=== PATIENT | male | born 1965 ===

== ENCOUNTER 2017-11-17 06:33 | Emergency (ER) | payer OTHER, BC ==
[2017-11-17 06:33] VITALS: BMI 31.0
[2017-11-17 07:48] LABS: BASO # 0.1 K/uL (0.0-0.2); BASO % 0.7 % (0.0-2.0); EOS # 0.2 K/uL (0.0-0.7); EOS % 1.2 % (0.0-4.0); HEMOGLOBIN 16.7 g/dL (12.0-18.0); LYMPH % 15.8 % (20.0-40.0); MEAN CELL VOLUME 93.7 fL (80.0-94.0); MEAN CORPUSCULAR HEMOGLOBIN 32.2 pg (27.0-31.0); MEAN CORPUSCULAR HGB CONC 34.4 g/dL (33.0-37.0); MEAN PLATELET VOLUME 9.1 fL (7.2-11.7); MONO # 0.7 K/uL (0.0-0.8); MONO % 5.9 % (0.0-10.0); NEUT # 9.7 K/uL (1.8-7.0); NEUT % 76.4 % (50.0-75.0); NRBC % 0.2 % (0.0-2.0); RBC 5.2 Mil/uL (4.40-5.90); RED CELL DISTRIBUTION WIDTH 13.3 % (11.5-14.5); WHITE BLOOD COUNT 12.7 K/uL (4.8-10.8)
--- NOTE | 2017-11-17 08:05 | RAD ---
PROCEDURE: CHEST RADIOGRAPH, 1 VIEW HISTORY: chest pain COMPARISON: None available. FINDINGS: LUNGS: Clear. PLEURA: No pneumothorax or pleural fluid seen. CARDIOVASCULAR: Normal. OSSEOUS STRUCTURES: Mild thoracic spondylosis VISUALIZED UPPER ABDOMEN: Normal. OTHER FINDINGS: None. IMPRESSION: No active disease.
[2017-11-17 08:08] LABS: ALB/GLOB RATIO 1.1 (1.0-2.1); ALBUMIN 4.1 g/dL (3.5-5.0); ALT/SGPT 73 U/L (21-72); AST/SGOT 48 U/L (17-59); BLOOD UREA NITROGEN 17 mg/dL (9-20); CALCIUM 9.2 mg/dl (8.6-10.4); GFR AFRICAN-AMERICAN > 60; GFR NON-AFRICAN AMERICAN > 60
[2017-11-17 08:20] LABS: B-TYPE NATRIURETIC PEPTIDE 16.7 pg/mL (0-900)
[2017-11-17 09:38] VITALS: BP 126/85; PULSE 57; RESP 18; TEMP 97.6; O2SAT 98
--- NOTE | 2017-11-17 10:10 | C.PDOC ---
History Of Present Illness 52 y/o male, w/PMhx of diabetes, presents to the ER complaining of dizziness and nausea which began after the patient woke up in the morning today. Patient states that he felt pressure in his head and he was in a cold sweat. Patient reports that he had nausea which has resolved now. He notes that he vomited x2. He notes that he had nausea which has resolved now. He denies having fever, chills, CP, and SOB. Time Seen by Provider: 11/17/17 07:02 Chief Complaint (Nursing): Dizziness/Lightheaded History Per: Patient History/Exam Limitations: no limitations Onset/Duration Of Symptoms: Hrs Current Symptoms Are (Timing): Still Present Past Medical History Reviewed: Historical Data, Nursing Documentation, Vital Signs Vital Signs: Last Vital Signs Temp 97.6 F 11/17/17 09:37 Pulse 57 L 11/17/17 09:37 Resp 18 11/17/17 10:18 BP 126/85 11/17/17 09:37 Pulse Ox 98 11/17/17 10:43 - Medical History PMH: CAD, Diabetes, HTN, Hyperlipidemia Denies: Chronic Kidney Disease Surgical History: Coronary Stent (x2) - [facility] Procedures DILATION OF 1 COR ART WITH DRUG-ELUT INTRALUM, PERC APPROACH (07/13/15) MEASURE OF CARDIAC SAMPL & PRESSURE, L HEART, PERC APPROACH (07/13/15) PLAIN RADIOGRAPHY OF LEFT HEART USING OTHER CONTRAST (07/13/15) PLAIN RADIOGRAPHY OF MULT COR ART USING OTH CONTRAST (07/13/15) Family History: States: No Known Family Hx - Social History Hx Alcohol Use: No Hx Substance Use: No - Immunization History Hx Tetanus Toxoid Vaccination: No Hx Influenza Vaccination: No Hx Pneumococcal Vaccination: No Review Of Systems Constitutional: Negative for: Fever, Chills Cardiovascular: Negative for: Chest Pain Respiratory: Negative for: Shortness of Breath Gastrointestinal: Positive for: Vomiting Neurological: Positive for: Dizziness Physical Exam - Physical Exam Appears: Non-toxic, No Acute Distress Skin: Normal Color, Warm, Dry Head: Atraumatic, Normacephalic Eye(s): bilateral: Normal Inspection Nose: Normal Oral Mucosa: Moist Neck: Supple Chest: Symmetrical Cardiovascular: Rhythm Regular Gastrointestinal/Abdominal: Normal Exam, Soft, No Tenderness Neurological/Psych: Oriented x3, Normal Speech ED Course And Treatment - Laboratory Results Result Diagrams: 11/17/17 07:39 11/17/17 07:39 ECG: Interpreted By Me, Viewed By Me ECG Rhythm: Sinus Rhythm ECG Interpretation: Normal Interpretation Of ECG: NSR with no ST elevations/depressions Rate From EC O2 Sat by Pulse Oximetry: 98 (RA) Pulse Ox Interpretation: Normal - Radiology CXR: Interpreted by Me, Viewed By Me CXR Interpretation: Yes: No Acute Disease Medical Decision Making Medical Decision Making: Plan: --Labs --CXR --EKG --Pepcid IV Disposition Counseled Patient/Family Regarding: Diagnosis, Need For Followup - Disposition Referrals: Al Araujo MD [Medical Doctor] - Disposition: HOME/ ROUTINE Disposition Time: 10:07 Condition: STABLE Additional Instructions: Follow up with your doctor, return to the Emergency Department if symptoms return. Instructions: Dizziness, Nonvertigo, (DC) Forms: Gen Discharge Inst Azerbaijani, Work Excuse - POA Present On Arrival: None - Clinical Impression Clinical Impression: Dizziness - Scribe Statement The provider has reviewed the documentation as recorded by the Noe Aguila Provider Attestation: All medical record entries made by the Olvinibglendy were at my direction and personally dictated by me. I have reviewed the chart and agree that the record accurately reflects my personal performance of the history, physical exam, medical decision making, and the department course for this patient. I have also personally directed, reviewed, and agree with the discharge instructions and disposition.
--- NOTE | 2017-11-19 12:36 | CARD ---
APPROVED REPORT EKG Measurement Heart [id number] <Conclusion> Normal sinus rhythm Normal ECG
== END 2017-11-17 10:19 | disposition home or self-care (01) ==
LOC: C.ER 06:33
DX: R42 Dizziness and giddiness (principal); I10 Essential (primary) hypertension; E11.9 Type 2 diabetes mellitus without complications; E78.5 Hyperlipidemia, unspecified; F17.210 Nicotine dependence, cigarettes, uncomplicated

== ENCOUNTER 2018-09-17 13:19 | Observation (INO) | payer BC ==
[2018-09-17 13:19] VITALS: BMI 31.0
[2018-09-17 14:09] LABS: BASO # 0.1 K/uL (0.0-0.2); BASO % 0.8 % (0.0-2.0); EOS # 0.1 K/uL (0.0-0.7); EOS % 1.7 % (0.0-4.0); HEMOGLOBIN 16.6 g/dL (12.0-18.0); LYMPH # 1.2 K/uL (1.0-4.3); LYMPH % 16.7 % (20.0-40.0); MEAN CORPUSCULAR HEMOGLOBIN 31.5 pg (27.0-31.0); MEAN PLATELET VOLUME 8.7 fL (7.2-11.7); MONO # 0.9 K/uL (0.0-0.8); MONO % 12.5 % (0.0-10.0); NEUT % 68.3 % (50.0-75.0); NRBC % 0.1 % (0.0-2.0); RBC 5.25 Mil/uL (4.40-5.90); RED CELL DISTRIBUTION WIDTH 13.4 % (11.5-14.5); WHITE BLOOD COUNT 7.3 K/uL (4.8-10.8)
[2018-09-17 14:10] LABS: MEAN CELL VOLUME 95.6 fL (80.0-94.0)
[2018-09-17 14:20] LABS: ALB/GLOB RATIO 1.3 (1.0-2.1); ALBUMIN 4.5 g/dL (3.5-5.0); ALT/SGPT 53 U/L (21-72); AST/SGOT 33 U/L (17-59); BLOOD UREA NITROGEN 13 mg/dL (9-20); CALCIUM 9.1 mg/dl (8.6-10.4); GFR NON-AFRICAN AMERICAN > 60
--- NOTE | 2018-09-17 14:24 | C.PDOC ---
History Of Present Illness 53 y/o male with a PMHx of HTN, DM, hypercholesterolemia, and s/p coronary stent x3 presents to the ED complaining of chest pain and SOB since this morning. 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 He did not have any pain while lifting, but felt onset of symptoms after walking back to his seat. Otherwise he denies any fever, chills, nausea, vomiting, diaphoresis, abdominal pain, dizziness, or headache. Patient did not take any medication prior to arrival. Time Seen by Provider: 09/17/18 13:22 Chief Complaint (Nursing): Chest Pain History Per: Patient History/Exam Limitations: no limitations Onset/Duration Of Symptoms: Hrs Current Symptoms Are (Timing): Still Present Exacerbating Factors: Exertion Past Medical History Reviewed: Historical Data, Nursing Documentation, Vital Signs Vital Signs: Last Vital Signs Temp 98.8 F 09/17/18 13:24 Pulse 78 09/17/18 13:24 Resp 20 09/17/18 13:24 BP 132/69 09/17/18 13:24 Pulse Ox 97 09/17/18 13:24 - Medical History PMH: CAD, Diabetes, HTN, Hypercholesterolemia, Hyperlipidemia Denies: Chronic Kidney Disease Surgical History: Coronary Stent (x2) - [facility] Procedures DILATION OF 1 COR ART WITH DRUG-ELUT INTRALUM, PERC APPROACH (07/13/15) MEASURE OF CARDIAC SAMPL & PRESSURE, L HEART, PERC APPROACH (07/13/15) PLAIN RADIOGRAPHY OF LEFT HEART USING OTHER CONTRAST (07/13/15) PLAIN RADIOGRAPHY OF MULT COR ART USING OTH CONTRAST (07/13/15) Family History: States: Unknown Family Hx - Social History Hx Alcohol Use: No Hx Substance Use: No - Immunization History Hx Tetanus Toxoid Vaccination: No Hx Influenza Vaccination: No Hx Pneumococcal Vaccination: No Review Of Systems Except As Marked, All Systems Reviewed And Found Negative. Constitutional: Negative for: Fever, Chills, Sweats Eyes: Negative for: Vision Change Cardiovascular: Positive for: Chest Pain. Negative for: Palpitations Respiratory: Positive for: Shortness of Breath. Negative for: Pleuritic Pain Gastrointestinal: Negative for: Nausea, Vomiting, Diarrhea Skin: Negative for: Rash Neurological: Negative for: Weakness, Headache, Dizziness Physical Exam - Physical Exam Additional Physical Exam Comments: Constitutional: No acute distress. Head: Normocephalic. Atraumatic. Eyes: PERRL. ENT: Moist mucous membranes. Neck: Supple. Cardiovascular: Regular rate. Radial pulse 2+ bilaterally. Chest: No tenderness. Respiratory: Clear to auscultation bilaterally. GI: Soft. Nontender. Nondistended. Back: No CVA tenderness. Musculoskeletal: No tenderness or swelling of extremities. Skin: No rash. Neurologic: Alert, no focal deficit. ED Course And Treatment - Laboratory Results Result Diagrams: 09/17/18 14:04 09/17/18 14:04 O2 Sat by Pulse Oximetry: 97 (RA) Pulse Ox Interpretation: Normal Medical Decision Making Medical Decision Making: Plan: - Labs - EKG - CXR - 325 mg PO Aspirin - Reassess EKG: NSR @ 75 bpm, No ST/T wave changes CXR no acute disease. Disposition - Disposition Disposition: HOSPITALIZED Disposition Time: 14:45 Condition: FAIR Forms: [facility] (Bahamian) - POA Core Measure Indicators: Chest Pain - Clinical Impression Clinical Impression: Chest pain - Scribe Statement The provider has reviewed the documentation as recorded by the Noe Mart Provider Attestation: All medical record entries made by the Noe were at my direction and personally dictated by me. I have reviewed the chart and agree that the record accurately reflects my personal performance of the history, physical exam, medical decision making, and the department course for this patient. I have also personally directed, reviewed, and agree with the discharge instructions and disposition.
[2018-09-17 14:32] LABS: CK-MB 1.17 ng/mL (0.0-3.38)
--- NOTE | 2018-09-17 14:33 | RAD ---
Date of service: 09/17/2018 HISTORY: Chest pain COMPARISON: 11/17/2017 FINDINGS: LUNGS: The lungs are well inflated and clear. PLEURA: No pleural effusions or pneumothorax. CARDIOVASCULAR: The heart is normal in size. No aortic atherosclerotic calcifications present. OSSEOUS STRUCTURES: Within normal limits for the patient's age. VISUALIZED UPPER ABDOMEN: Normal. OTHER FINDINGS: None. IMPRESSION: No active pulmonary disease.
--- NOTE | 2018-09-17 18:42 | CP.PCM.HP ---
Past Patient History - Infectious Disease Hx of Infectious Diseases: None - Past Social History Smoking Status: Heavy Smoker > 10 Cigarettes Daily - CARDIAC Hx Hypercholesterolemia: Yes Hx Hypertension: Yes - PULMONARY Hx Respiratory Disorders: No - NEUROLOGICAL Hx Neurological Disorder: No - HEENT Hx HEENT Problems: No - RENAL Hx Chronic Kidney Disease: No - ENDOCRINE/METABOLIC Hx Endocrine Disorders: No - HEMATOLOGICAL/ONCOLOGICAL Hx Blood Disorders: No - INTEGUMENTARY Hx Dermatological Problems: No - MUSCULOSKELETAL/RHEUMATOLOGICAL Hx Musculoskeletal Disorders: No Hx Falls: No - GASTROINTESTINAL Hx Gastrointestinal Disorders: No - GENITOURINARY/GYNECOLOGICAL Hx Genitourinary Disorders: No - PSYCHIATRIC Hx Substance Use: No - SURGICAL HISTORY Hx Coronary Stent: Yes (x2) - ANESTHESIA Hx Anesthesia: Yes Hx Anesthesia Reactions: No Hx Malignant Hyperthermia: No Meds Allergies/Adverse Reactions: Allergies Allergy/AdvReac Type Severity Reaction Status Date / Time No Known Allergies Allergy Verified 09/17/18 13:26 Physical Exam - Constitutional Appears: Well - Head Exam Head Exam: ATRAUMATIC, NORMAL INSPECTION, NORMOCEPHALIC - Eye Exam Eye Exam: EOMI, Normal appearance, PERRL Pupil Exam: NORMAL ACCOMODATION, PERRL - ENT Exam ENT Exam: Mucous Membranes Moist, Normal Exam - Neck Exam Neck exam: Positive for: Normal Inspection - Respiratory Exam Respiratory Exam: Decreased Breath Sounds - Cardiovascular Exam Cardiovascular Exam: REGULAR RHYTHM, +S1, +S2 - GI/Abdominal Exam GI & Abdominal Exam: Diminished Bowel Sounds, Soft - Rectal Exam Rectal Exam: Deferred Results - Vital Signs Recent Vital Signs: Last Vital Signs Temp 98.8 F 09/17/18 17:50 Pulse 70 09/17/18 17:50 Resp 18 09/17/18 17:50 BP 129/78 09/17/18 17:50 Pulse Ox 97 09/17/18 17:50 - Labs Result Diagrams: 09/17/18 14:04 09/17/18 14:04 Labs: Laboratory Results - last 24 hr 09/17/18 09/17/18 14:04 14:04 WBC 7.3 RBC 5.25 Hgb 16.6 Hct 50.2 MCV 95.6 H D MCH 31.5 H MCHC 33.0 RDW 13.4 Plt Count 248 MPV 8.7 Neut % (Auto) 68.3 Lymph % (Auto) 16.7 L Bradley % (Auto) 12.5 H Eos % (Auto) 1.7 Baso % (Auto) 0.8 Neut # (Auto) 5.0 Lymph # (Auto) 1.2 Bradley # (Auto) 0.9 H Eos # (Auto) 0.1 Baso # (Auto) 0.1 Sodium 137 Potassium 4.6 Chloride 102 Carbon Dioxide 29 Anion Gap 11 BUN 13 Creatinine 0.7 L Est GFR ( Amer) > 60 Est GFR (Non-Af Amer) > 60 Random Glucose 169 H D Calcium 9.1 Total Bilirubin 0.4 AST 33 ALT 53 Alkaline Phosphatase 76 Total Creatine Kinase 84 CK-MB (Mass) 1.17 Troponin I 0.0940 Total Protein 8.0 Albumin 4.5 Globulin 3.5 Albumin/Globulin Ratio 1.3
[2018-09-17 20:41] LABS: CK-MB 0.93 ng/mL (0.0-3.38); TROPONIN I 0.16 ng/mL (0.00-0.120)
[2018-09-17 21:03] VITALS: RESP 20
[2018-09-17] MEDS: Enoxaparin 100 mg Syringe SC SCH (21:44)
[2018-09-17] MEDS: (Novolog) Insulin Aspart, Recombinant 100 u/ml 10 ml vial SC SCH (21:45)
[2018-09-18 04:55] LABS: CK-MB 0.54 ng/mL (0.0-3.38); TROPONIN I 0.122 ng/mL (0.00-0.120)
[2018-09-18] MEDS: (Novolog) Insulin Aspart, Recombinant 100 u/ml 10 ml vial SC SCH ×4 (07:57→21:55)
[2018-09-18] MEDS: Enoxaparin 100 mg Syringe SC SCH ×2 (11:04→21:51)
--- NOTE | 2018-09-18 18:29 | CP.PCM.PN ---
Subjective - Date & Time of Evaluation Date of Evaluation: 09/18/18 Time of Evaluation: 10:45 - Subjective Subjective: clinically same Objective - Vital Signs/Intake and Output Vital Signs (last 24 hours): Temp Pulse Resp BP Pulse Ox 98.8 F 58 L 20 122/72 97 09/18/18 15:00 09/18/18 15:00 09/18/18 15:00 09/18/18 15:00 09/18/18 15:00 - Medications Medications: Current Medications Aspirin (Aspirin) 325 mg PO DAILY [facility] Last Admin: 09/18/18 10:45 Dose: 325 mg Clopidogrel Bisulfate (Plavix) 75 mg PO DAILY [facility] Last Admin: 09/18/18 10:44 Dose: 75 mg Enoxaparin Sodium (Lovenox) 90 mg SC Q12 [facility] Last Admin: 09/18/18 11:04 Dose: 90 mg Insulin Aspart (Novolog) 0 unit SC ACHS [facility]; Protocol Last Admin: 09/18/18 07:57 Dose: 1 unit Rosuvastatin Calcium (Crestor) 10 mg PO HS [facility] Last Admin: 09/17/18 21:44 Dose: 10 mg - Labs Labs: 09/17/18 14:04 09/17/18 14:04 - Constitutional Appears: Well - Head Exam Head Exam: ATRAUMATIC, NORMAL INSPECTION, NORMOCEPHALIC - Eye Exam Eye Exam: EOMI, Normal appearance, PERRL Pupil Exam: NORMAL ACCOMODATION, PERRL - ENT Exam ENT Exam: Mucous Membranes Moist, Normal Exam - Neck Exam Neck Exam: Full ROM, Normal Inspection. absent: Lymphadenopathy - Respiratory Exam Respiratory Exam: Decreased Breath Sounds - Cardiovascular Exam Cardiovascular Exam: REGULAR RHYTHM, +S1, +S2 - GI/Abdominal Exam GI & Abdominal Exam: Soft, Diminished Bowel Sounds - Rectal Exam Rectal Exam: Deferred
[2018-09-18] MEDS ORDERED: Fluticasone Nasal 50 mcg/Spray NAS ONE (23:14)
[2018-09-19] MEDS: (Novolog) Insulin Aspart, Recombinant 100 u/ml 10 ml vial SC SCH ×3 (08:07→17:34)
[2018-09-19] MEDS: Enoxaparin 100 mg Syringe SC SCH ×2 (10:19→22:20)
--- NOTE | 2018-09-19 11:02 | CP.PCM.CON ---
History of Present Illness - History of Present Illness History of Present Illness: Malcom is a pleasant 53-year-old male with past medical history significant for hypertension dyslipidemia coronary artery disease status post stenting x3 who has been seen by multiple furniture crater in the past was referred to me for eval uation of symptoms of unstable angina with mildly positive troponins. He was started on subcu Lovenox therapy symptoms resolved. 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 Review of Systems - Review of Systems Systems not reviewed;Unavailable: Acuity of Condition - Constitutional Constitutional: As Per HPI - EENT Eyes: As Per HPI Ears: As Per HPI Nose/Mouth/Throat: As Per HPI - Cardiovascular Cardiovascular: As Per HPI - Respiratory Respiratory: As Per HPI - Gastrointestinal Gastrointestinal: As Per HPI - Genitourinary Genitourinary: As Per HPI - Reproductive: Male Reproductive:Male: As Per HPI - Musculoskeletal Musculoskeletal: As Per HPI - Integumentary Integumentary: As Per HPI - Neurological Neurological: As Per HPI - Psychiatric Psychiatric: As Per HPI - Endocrine Endocrine: As Per HPI - Hematologic/Lymphatic Hematologic: As Per HPI Past Patient History - Infectious Disease Hx of Infectious Diseases: None - Past Social History Smoking Status: Heavy Smoker > 10 Cigarettes Daily - CARDIAC Hx Hypercholesterolemia: Yes Hx Hypertension: Yes - PULMONARY Hx Respiratory Disorders: No - NEUROLOGICAL Hx Neurological Disorder: No - HEENT Hx HEENT Problems: No - RENAL Hx Chronic Kidney Disease: No - ENDOCRINE/METABOLIC Hx Endocrine Disorders: No - HEMATOLOGICAL/ONCOLOGICAL Hx Blood Disorders: No - INTEGUMENTARY Hx Dermatological Problems: No - MUSCULOSKELETAL/RHEUMATOLOGICAL Hx Musculoskeletal Disorders: No Hx Falls: No - GASTROINTESTINAL Hx Gastrointestinal Disorders: No - GENITOURINARY/GYNECOLOGICAL Hx Genitourinary Disorders: No - PSYCHIATRIC Hx Substance Use: No - SURGICAL HISTORY Hx Coronary Stent: Yes (x2) - ANESTHESIA Hx Anesthesia: Yes Hx Anesthesia Reactions: No Hx Malignant Hyperthermia: No Meds Allergies/Adverse Reactions: Allergies Allergy/AdvReac Type Severity Reaction Status Date / Time No Known Allergies Allergy Verified 09/17/18 13:26 - Medications Medications: Current Medications Aspirin (Aspirin) 325 mg PO DAILY [facility] Last Admin: 09/19/18 10:17 Dose: 325 mg Clopidogrel Bisulfate (Plavix) 75 mg PO DAILY [facility] Last Admin: 02/17/19 10:17 Dose: 75 mg Enoxaparin Sodium (Lovenox) 90 mg SC Q12 [facility] Last Admin: 09/19/18 10:19 Dose: 90 mg Insulin Aspart (Novolog) 0 unit SC ACHS [facility]; Protocol Last Admin: 09/19/18 08:07 Dose: 1 unit Rosuvastatin Calcium (Crestor) 10 mg PO HS [facility] Last Admin: 09/18/18 21:52 Dose: 10 mg Physical Exam - Constitutional Appears: Well - Head Exam Head Exam: ATRAUMATIC, NORMAL INSPECTION, NORMOCEPHALIC - Eye Exam Eye Exam: EOMI, Normal appearance, PERRL Pupil Exam: NORMAL ACCOMODATION, PERRL - ENT Exam ENT Exam: Mucous Membranes Moist, Normal Exam - Neck Exam Neck exam: Positive for: Normal Inspection - Respiratory Exam Respiratory Exam: Clear to Auscultation Bilateral, NORMAL BREATHING PATTERN - Cardiovascular Exam Cardiovascular Exam: REGULAR RHYTHM - GI/Abdominal Exam GI & Abdominal Exam: Normal Bowel Sounds, Soft. absent: Tenderness - Extremities Exam Extremities exam: Positive for: normal inspection - Back Exam Back exam: NORMAL INSPECTION - Neurological Exam Neurological exam: Alert, CN II-XII Intact, Normal Gait, Oriented x3, Reflexes Normal - Psychiatric Exam Psychiatric exam: Normal Affect, Normal Mood - Skin Skin Exam: Dry, Intact, Normal Color, Warm Results - Vital Signs Recent Vital Signs: Last Vital Signs Temp 98.5 F 09/19/18 07:30 Pulse 70 09/19/18 07:30 Resp 20 09/19/18 07:30 BP 122/69 09/19/18 07:30 Pulse Ox 97 09/19/18 07:30 - Labs Result Diagrams: 09/17/18 14:04 09/17/18 14:04 Labs: Laboratory Results - last 24 hr 09/18/18 09/18/18 09/18/18 06:23 11:05 16:46 POC Glucose (mg/dL) 177 H 191 H 172 H 09/18/18 09/19/18 21:32 06:38 POC Glucose (mg/dL) 206 H 175 H Assessment & Plan (1) NSTEMI (non-ST elevated myocardial infarction) Assessment and Plan: plan for cath at [facility] [place] 7 am tomorrow cont lovenox cont dapt cont statins add metoprolol 25mg po bid plan of care discussed with patient who agrees to proceed Status: Acute (2) Diabetes mellitus, new onset Status: Acute (3) HTN (hypertension) Status: Acute
--- NOTE | 2018-09-19 13:03 | CP.PCM.PN ---
Subjective - Date & Time of Evaluation Date of Evaluation: 09/19/18 Time of Evaluation: 10:45 - Subjective Subjective: clinically same Objective - Vital Signs/Intake and Output Vital Signs (last 24 hours): Temp Pulse Resp BP Pulse Ox 98.5 F 70 20 109/70 97 09/19/18 07:30 09/19/18 07:30 09/19/18 07:30 09/19/18 12:15 09/19/18 07:30 Intake and Output: 09/19/18 09/19/18 06:59 18:59 Intake Total 600 Balance 600 - Medications Medications: Current Medications Aspirin (Aspirin) 325 mg PO DAILY [facility] Last Admin: 09/19/18 10:17 Dose: 325 mg Clopidogrel Bisulfate (Plavix) 75 mg PO DAILY [facility] Last Admin: 09/19/18 10:17 Dose: 75 mg Enoxaparin Sodium (Lovenox) 90 mg SC Q12 [facility] Last Admin: 09/19/18 10:19 Dose: 90 mg Insulin Aspart (Novolog) [address] [facility]; Protocol Last Admin: 09/19/18 12:30 Dose: 3 unit Metoprolol Tartrate (Lopressor) 25 mg PO BID [facility] Last Admin: 09/19/18 12:15 Dose: Not Given Rosuvastatin Calcium (Crestor) 10 mg PO HS [facility] Last Admin: 09/18/18 21:52 Dose: 10 mg - Labs Labs: 09/17/18 14:04 09/17/18 14:04 - Constitutional Appears: Well - Head Exam Head Exam: ATRAUMATIC, NORMAL INSPECTION, NORMOCEPHALIC - Eye Exam Eye Exam: EOMI, Normal appearance, PERRL Pupil Exam: NORMAL ACCOMODATION, PERRL - ENT Exam ENT Exam: Mucous Membranes Moist, Normal Exam - Neck Exam Neck Exam: Full ROM, Normal Inspection. absent: Lymphadenopathy - Respiratory Exam Respiratory Exam: Decreased Breath Sounds - Cardiovascular Exam Cardiovascular Exam: REGULAR RHYTHM, +S1, +S2 - GI/Abdominal Exam GI & Abdominal Exam: Soft, Diminished Bowel Sounds - Rectal Exam Rectal Exam: Deferred
[2018-09-19 23:14] LABS: INR 0.9; PROTHROMBIN TIME 10.1 SECONDS (9.7-12.2)
--- NOTE | 2018-09-20 07:55 | CP.PCM.PN ---
Subjective - Date & Time of Evaluation Date of Evaluation: 09/20/18 Time of Evaluation: 07:55 - Subjective Subjective: Progress Note Dr. Saran Conte Service Patient seen and examined at bedside. Per nursing no acute events occurred overnight . Patient transferred to [facility] this morning for Cardiac Cath with Dr. Santiago. Patient will return to [facility] afterwards. 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 Objective - Vital Signs/Intake and Output Vital Signs (last 24 hours): Temp Pulse Resp BP Pulse Ox 98.9 F 75 20 106/64 95 09/19/18 23:40 09/20/18 03:57 09/19/18 23:40 09/19/18 23:40 09/19/18 23:40 - Medications Medications: Current Medications Aspirin (Aspirin) 325 mg PO DAILY [facility] Last Admin: 09/19/18 10:17 Dose: 325 mg Clopidogrel Bisulfate (Plavix) 75 mg PO DAILY [facility] Last Admin: 09/19/18 10:17 Dose: 75 mg Enoxaparin Sodium (Lovenox) 90 mg SC Q12 [facility] Last Admin: 09/19/18 22:20 Dose: 90 mg Insulin Aspart (Novolog) 0 unit SC ACHS [facility]; Protocol Last Admin: 09/19/18 17:34 Dose: 2 unit Metoprolol Tartrate (Lopressor) 25 mg PO BID [facility] Last Admin: 09/19/18 17:36 Dose: 25 mg Rosuvastatin Calcium (Crestor) 10 mg PO HS [facility] Last Admin: 09/19/18 22:21 Dose: 10 mg - Labs Labs: 09/17/18 14:04 09/17/18 14:04 PT 10.1 SECONDS (9.7-12.2) 09/19/18 22:55 INR 0.9 09/19/18 22:55 APTT 38 SECONDS (21-34) H 09/19/18 22:55 - Additional Findings Additional findings: Patient had been transferred to [facility] prior to being examined. Assessment and Plan - Assessment and Plan (Free Text) Assessment: 53 year old male with a past medical history of diabetes, hypertension and cad S/P stent (LAD) presents to the hospital for chest pain. Plan: 1. Chest pain r/o acs Patient has extensive cardiac history including stent placed in LAD EKG:NSR @ 75 bpm, No ST/T wave changes Troponin:.09, .16. 12 Echocardiogram ordered .Will f/u with results. Cardiology consulted Dr. Santiago -Patient will undergo cardiac cath @7am this morning at [facility] Medications: Asprin 325mg PO Daily Lovenox 90mg SC Q12 [facility] 2.D.M. -ISS -Accuchecks ACHS 3. Hyperlipidemia -Crestor 10mg PO HS [facility] 4.Hypertension -Lopressor 25mg PO BID [facility] Dispo: Patient to have Cardiac cath in [facility] @7a.m. All management per Dr. Saran Broderick, PGY-2
[2018-09-20] MEDS: (Novolog) Insulin Aspart, Recombinant 100 u/ml 10 ml vial SC SCH (07:57)
[2018-09-20 08:10] VITALS: BP 119/71; PULSE 59; TEMP 98.2; O2SAT 96
--- NOTE | 2018-09-20 09:47 | CP.PCM.PN ---
Subjective - Date & Time of Evaluation Date of Evaluation: 09/20/18 Time of Evaluation: 07:00 - Subjective Subjective: Pt seen and examined at bedside this morning. Pt has no new complaints at this time. Objective - Vital Signs/Intake and Output Vital Signs (last 24 hours): Temp Pulse Resp BP Pulse Ox 98.2 F 59 L 20 119/71 96 09/20/18 08:09 09/20/18 08:09 09/20/18 08:09 09/20/18 08:09 09/20/18 08:09 - Medications Medications: Current Medications Aspirin (Aspirin) 325 mg PO DAILY [facility] Last Admin: 09/20/18 08:16 Dose: 325 mg Clopidogrel Bisulfate (Plavix) 75 mg PO DAILY [facility] Last Admin: 09/20/18 08:16 Dose: 75 mg Enoxaparin Sodium (Lovenox) 90 mg SC Q12 [facility] Last Admin: 09/19/18 22:20 Dose: 90 mg Insulin Aspart (Novolog) 0 unit SC ACHS [facility]; Protocol Last Admin: 09/20/18 07:57 Dose: Not Given Metoprolol Tartrate (Lopressor) 25 mg PO BID [facility] Last Admin: 09/19/18 17:36 Dose: 25 mg Rosuvastatin Calcium (Crestor) 10 mg PO HS [facility] Last Admin: 09/19/18 22:21 Dose: 10 mg - Labs Labs: 09/17/18 14:04 09/17/18 14:04 PT 10.1 SECONDS (9.7-12.2) 09/19/18 22:55 INR 0.9 09/19/18 22:55 APTT 38 SECONDS (21-34) H 09/19/18 22:55 - Constitutional Appears: No Acute Distress - Head Exam Head Exam: ATRAUMATIC, NORMOCEPHALIC - Eye Exam Eye Exam: EOMI - ENT Exam ENT Exam: Mucous Membranes Moist - Neck Exam Neck Exam: Full ROM - Respiratory Exam Respiratory Exam: Clear to Ausculation Bilateral, NORMAL BREATHING PATTERN. absent: Accessory Muscle Use, Respiratory Distress - Cardiovascular Exam Cardiovascular Exam: RRR, +S1, +S2. absent: Diastolic murmur, Murmur - GI/Abdominal Exam GI & Abdominal Exam: Soft, Normal Bowel Sounds. absent: Tenderness - Extremities Exam Extremities Exam: Full ROM. absent: Calf Tenderness, Pedal Edema, Tenderness - Neurological Exam Neurological Exam: Alert, Awake, Oriented x3 - Psychiatric Exam Psychiatric exam: Normal Affect, Normal Mood - Skin Skin Exam: Dry, Normal Color, Warm Assessment and Plan - Assessment and Plan (Free Text) Assessment: (1) NSTEMI (non-ST elevated myocardial infarction) (2) Diabetes mellitus, new onset Status: Acute (3) HTN (hypertension) Status: Acute Plan: NSTEMI HA1C follow up Troponin 0.094, 0.16, 0.122 [place] [facility] [place] ASA plavix metoprolol lovenox 90mg Q12 Pt seen, examined, assessment and plan discussed with Dr Jack Johansen PGY1
== END 2018-09-20 13:30 | disposition short-term general hospital (02) ==
LOC: C.ER 13:19 → C.9E 14:44 → C.6T 17:13
PROVIDERS: ADMIT Internal Medicine; ATTEND Internal Medicine
DX: I21.4 Non-ST elevation (NSTEMI) myocardial infarction (principal); I25.10 Atherosclerotic heart disease of native coronary artery without angina pectoris; E11.9 Type 2 diabetes mellitus without complications; I10 Essential (primary) hypertension; E78.00 Pure hypercholesterolemia, unspecified; E78.5 Hyperlipidemia, unspecified; F17.210 Nicotine dependence, cigarettes, uncomplicated; Z95.5 Presence of coronary angioplasty implant and graft
CPT/HCPCS: 36415; 71045; 80053; 82550; 82553; 82948; 84484; 85025; 85610; 85730; 99285; G0378; J1650